=== PATIENT | male | born 1985 | race Caucasian/White ===

== ENCOUNTER 2019-01-10 13:56 | Emergency (ER) | payer SELFPAY ==
[2019-01-10 15:00] VITALS: BP 151/101
[2019-01-10] MEDS ORDERED: Lidocaine 1% MPF ** 5 ML VIAL INJ ONE (15:19)
--- NOTE | 2019-01-10 15:51 | UC ---
Skin Complaint HPI - HPI Summary HPI Summary: 33 year old male with no PMH, no difficulty with wound healing, no DM, unknown tetanus presents after cutting left index finger with knife while cleaning knife. knife was used to cut [place] previously. + bleeding, no loss of feeling , full motion. Patient works as pizza delivery driver - History of Current Complaint Chief Complaint: UCLaceration Time Seen by Provider: 01/10/19 15:13 Stated Complaint: FINGER LAC Hx Obtained From: Patient Onset/Duration: Sudden Onset, Lasting Minutes Skin Exposure Onset/Duration: Minutes Ago Timing: Constant Onset Severity: Moderate Current Severity: Moderate Pain Intensity: 4 Pain Scale Used: 0-10 Numeric Location: Discrete - left index finger Character: Pruritus Alleviating Factor(s): Nothing Related History: Trauma - Allergy/Home Medications Allergies/Adverse Reactions: Allergies Allergy/AdvReac Type Severity Reaction Status Date / Time No Known Allergies Allergy Verified 01/10/19 15:00 Home Medications: Home Medications NK [No Home Medications Reported] 01/10/19 [History Confirmed 01/10/19] PMH/Surg Hx/FS Hx/Imm Hx Previously Healthy: Yes - Surgical History Surgical History: None - Family History Known Family History: Positive: Non-Contributory - Social History Alcohol Use: Rare Substance Use Type: None Smoking Status (MU): Current Some Day Smoker Review of Systems All Other Systems Reviewed And Are Negative: Yes Skin: Positive: Other - laceration Musculoskeletal: Positive: Arthralgia, Myalgia Is Patient Immunocompromised?: No Physical Exam Triage Information Reviewed: Yes Appearance: Well-Appearing, No Pain Distress, Well-Nourished Vital Signs: Initial Vital Signs Temp 97.4 F 01/10/19 14:55 Pulse 84 01/10/19 14:55 Resp 16 01/10/19 14:55 BP 151/101 01/10/19 14:55 Pulse Ox 98 01/10/19 14:55 Vital Signs Reviewed: Yes Eyes: Positive: Conjunctiva Clear ENT: Positive: Hearing grossly normal Musculoskeletal: Positive: Strength Intact - L index finger @ MCP, PIP DIP, ROM Intact - L index finger @ MCP, PIP DIP, No Edema, Other: - no pain with palpation over all joints L hand. Rad pulse 2+ Neurological Exam: Normal Neurological: Positive: Other: - SITLT distal to L wrist at all fingertips Psychological Exam: Normal Skin: Positive: Other - 1.5 cmx 4mm x 2mm laceration, angular, full thickness without tendon involvement. Laceration Repair - Laceration Repair 1 Description: Linear Laceration Size After Repair: Length (cm) - 1.5cm, Width (mm) - 2mm, Depth (mm) - 4mm Modified For Repair: No Type Injection: Local Anesthesia Used: 1.0% Lido Cleansing Completed Via Routine Prep: Yes Irrigation With Pressure Irrigation Device: Yes Closure Material: Sutures Closure Method: Single Layer Suture Of: Skin Suture Type: Nylon - 4.0 7 simple interupted sutures placed Course/Dx - Course Course Of Treatment: Laceration to left index finger between MCP, PIP- 1.5 cm 7 simple sutures placed, to be removed within 6-7 days, may return back to urgent care for removal. - Keep area dry, OK to wash hands, shower in 24 hours, do not soak/ submerge wound - Dressing change as shown, may do band-aids in 24 hours - Keep area elevated and iced as needed for comfort - Tylenol/ Motrin as needed for pain, comfort. - Return with drainage, redness, increased pain, decreased sensation - Diagnoses Provider Diagnosis: Laceration Discharge ED - Sign-Out/Discharge Documenting (check all that apply): Patient Departure All imaging exams completed and their final reports reviewed: No Studies - Discharge Plan Condition: Good Disposition: HOME Patient Education Materials: Care For Your Stitches (ED), Finger Laceration (ED ) Referrals: [facility] [Outside] No Primary Care Phys,NOPCP [Primary Care Provider] - Additional Instructions: 7 simple sutures placed, to be removed within 6-7 days, may return back to urgent care for removal. - Keep area dry, OK to wash hands, shower in 24 hours, do not soak/ submerge wound - Dressing change as shown, may do band-aids in 24 hours - Keep area elevated and iced as needed for comfort - Tylenol/ Motrin as needed for pain, comfort. - Return with drainage, redness, increased pain, decreased sensation - Tetanus update given - Billing Disposition and Condition Condition: GOOD Disposition: Home - Attestation Statements Provider Attestation: I was available for consult. This patient was seen by the JUDY. The patient was not presented to , seen by or examined by in -Justin Woo MD
[2019-01-10] MEDS ORDERED: Tetan/Diph/Pertus SYR(Tdap)* 0.5 ML SYR(BOOSTRIX) use SYR IM ONE (15:56)
== END 2019-01-10 16:05 | disposition home or self-care (01) ==
LOC: UCEAST 13:56
DX: S61.211A Laceration without foreign body of left index finger without damage to nail, initial encounter (principal); W26.0XXA Contact with knife, initial encounter; Y93.G1 Activity, food preparation and clean up; Y92.9 Unspecified place or not applicable; Z23 Encounter for immunization; Z72.0 Tobacco use
CPT/HCPCS: 12001; 90471; 90715; 99201; G0463

== ENCOUNTER 2019-01-18 11:34 | Emergency (ER) | payer SELFPAY ==
[2019-01-18 11:39] VITALS: BP 144/97
--- NOTE | 2019-01-18 11:59 | UC ---
HPI Wound/Suture Re-check - HPI Summary HPI Summary: 33-year-old male who sustained a laceration to his left index finger 8 days ago. He is here for suture removal. He's had no complications. - History Of Current Complaint Chief Complaint: UCLaceration Stated Complaint: SUTURE REMOVAL Time Seen by Provider: 01/18/19 11:52 Hx Obtained From: Patient Onset/Duration: Sudden Onset - Pt was cutting food days ago and lacerated his left index finger. Severity: Mild Pain Intensity: 0 - Allergies/Home Medications Allergies/Adverse Reactions: Allergies Allergy/AdvReac Type Severity Reaction Status Date / Time No Known Allergies Allergy Verified 01/18/19 11:40 PMH/Surg Hx/FS Hx/Imm Hx Previously Healthy: Yes - Surgical History Surgical History: None - Family History Known Family History: Positive: Non-Contributory - Social History Alcohol Use: Rare Substance Use Type: None Smoking Status (MU): Current Some Day Smoker Review of Systems All Other Systems Reviewed And Are Negative: Yes Skin: Positive: Other - Pt is here for suture removal healing laceration left index finger. Is Patient Immunocompromised?: No Physical Exam Triage Information Reviewed: Yes Appearance: Well-Appearing, No Pain Distress, Well-Nourished Vital Signs: Initial Vital Signs Temp 97.1 F 01/18/19 11:37 Pulse 82 01/18/19 11:37 Resp 18 01/18/19 11:37 BP 144/97 01/18/19 11:37 Pulse Ox 100 01/18/19 11:37 Vital Signs Reviewed: Yes Musculoskeletal Exam: Normal Neurological Exam: Normal Psychological Exam: Normal Skin: Positive: Other - The laceration has [address] It appears to be healed. I removed 3 sutures and the patient is going to return in 3 more days for the rest of the sutures to be removed. Course/Dx - Course Course Of Treatment: Every other suture was removed a total of 3 sutures. There are 4 remaining sutures. I would like the patient to come back in 3 days for the rest of the sutures to be removed. He is agreeable to this plan of action. The area appears to be a completely healed but because of the location and the fact that when he flexes his finger it puts some stress on the sutures therefore I'm going to have him come back in 3 days. - Diagnosis Provider Diagnosis: Encounter for removal of sutures Discharge ED - Sign-Out/Discharge Documenting (check all that apply): Patient Departure All imaging exams completed and their final reports reviewed: No Studies - Discharge Plan Condition: Good Disposition: HOME Referrals: No Primary Care Phys,NOPCP [Primary Care Provider] - [facility] [Outside] Additional Instructions: Keep the area clean and dry, return on for the rest of the sutures to be removed. - Billing Disposition and Condition Condition: GOOD Disposition: Home
== END 2019-01-18 12:06 | disposition home or self-care (01) ==
LOC: UCEAST 11:34
DX: Z48.02 Encounter for removal of sutures (principal); F17.200 Nicotine dependence, unspecified, uncomplicated

== ENCOUNTER 2019-01-21 10:58 | Emergency (ER) | payer SELFPAY ==
[2019-01-21 12:07] VITALS: BP 139/72
--- NOTE | 2019-01-21 12:14 | UC ---
HPI Wound/Suture Re-check - HPI Summary HPI Summary: 33-year-old male who is here for the removal of 4 sutures in his left index finger. He had 3 removed here couple of days ago. The patient states the finger is healing nicely. - History Of Current Complaint Chief Complaint: UCWounds Stated Complaint: SUTURE REMOVAL Time Seen by Provider: 01/21/19 12:06 Hx Obtained From: Patient Onset/Duration: Resolved, Other - Area has healed. Severity: Mild Pain Intensity: 0 - Allergies/Home Medications Allergies/Adverse Reactions: Allergies Allergy/AdvReac Type Severity Reaction Status Date / Time No Known Allergies Allergy Verified 01/21/19 12:09 PMH/Surg Hx/FS Hx/Imm Hx Previously Healthy: Yes - Surgical History Surgical History: None - Family History Known Family History: Positive: Non-Contributory - Social History Alcohol Use: Rare Substance Use Type: None Smoking Status (MU): Current Some Day Smoker Review of Systems All Other Systems Reviewed And Are Negative: Yes Skin: Positive: Other - He originally had 7 sutures in his left index finger, 3 were removed a few days ago and he is here for the remainder to be removed. Is Patient Immunocompromised?: No Physical Exam Triage Information Reviewed: Yes Appearance: Well-Appearing, No Pain Distress, Well-Nourished Vital Signs: Initial Vital Signs Temp 97.7 F 01/21/19 12:00 Pulse 78 01/21/19 12:00 Resp 16 01/21/19 12:00 BP 139/72 01/21/19 12:00 Pulse Ox 96 01/21/19 12:00 Vital Signs Reviewed: Yes Musculoskeletal Exam: Normal Neurological Exam: Normal Psychological Exam: Normal Skin: Positive: Other - The laceration has healed nicely. The remaining 4 sutures were removed without difficulty. Course/Dx - Course Course Of Treatment: The patient is comfortable here. Patient tolerated the removal of the remaining 4 sutures well. - Diagnosis Provider Diagnosis: Encounter for removal of sutures Discharge ED - Sign-Out/Discharge Documenting (check all that apply): Patient Departure All imaging exams completed and their final reports reviewed: No Studies - Discharge Plan Condition: Good Disposition: HOME Patient Education Materials: Stitches Removal (ED) Referrals: [facility] [Outside] No Primary Care Phys,NOPCP [Primary Care Provider] - Additional Instructions: Follow-up at the [facility] for any further concerns. - Billing Disposition and Condition Condition: GOOD Disposition: Home
== END 2019-01-21 12:21 | disposition home or self-care (01) ==
LOC: UCEAST 10:58
DX: S61.211D Laceration without foreign body of left index finger without damage to nail, subsequent encounter (principal); X58.XXXD Exposure to other specified factors, subsequent encounter; F17.210 Nicotine dependence, cigarettes, uncomplicated
CPT/HCPCS: 99211; G0463